=== PATIENT | female | born 1950 | race Caucasian/White ===

== ENCOUNTER → 2016-08-24 | Outpatient (CLI) | payer BC ==
--- NOTE | 2016-08-25 09:39 | MM ---
Reason for exam: screening (asymptomatic). Last mammogram was performed 1 year ago. History: Patient is postmenopausal. Family history of premenopausal breast cancer in mother at age 38. Physical Findings: A clinical breast exam by your physician is recommended on an annual basis and results should be correlated with mammographic findings. MG Screening Mammo w CAD Bilateral CC and MLO view(s) were taken. Prior study comparison: August 22, 2015, bilateral MG screening mammo w CAD. August 02, 2014, bilateral MG screening mammo w CAD. The breast tissue is heterogeneously dense. This may lower the sensitivity of mammography. Benign calcifications. Focal asymmetry upper central left breast. ASSESSMENT: Incomplete: need additional imaging evaluation, BI-RAD 0 RECOMMENDATION: Special view mammogram of the left breast. If lesion persists on supplemental views, image directed ultrasound is recommended. [facility] will attempt to contact patient to return for supplemental views and ultrasound if indicated.
== END | disposition home or self-care (01) ==
LOC: RADMAMWWP 08:54
PROVIDERS: ATTEND Family Medicine
DX: Z12.31 Encounter for screening mammogram for malignant neoplasm of breast (principal); R92.2 Inconclusive mammogram

== ENCOUNTER → 2016-09-01 | Outpatient (CLI) | payer BC ==
--- NOTE | 2016-09-01 14:34 | MM ---
Reason for exam: additional evaluation requested from abnormal screening. Last mammogram was performed less than 1 month ago. History: Patient is postmenopausal. Family history of premenopausal breast cancer in mother at age 38. Physical Findings: Nurse did not find any significant physical abnormalities on exam. MG Work Up Mamm w CAD LT CC and MLO view(s) were taken of the left breast. Prior study comparison: August 24, 2016, bilateral MG screening mammo w CAD. August 22, 2015, bilateral MG screening mammo w CAD. There is no discrete abnormality including area of concern. These results were verbally communicated with the patient and result sheet given to the patient on 09/01/16. ASSESSMENT: Benign, BI-RAD 2 RECOMMENDATION: Return to routine screening mammogram schedule for both breasts.
== END | disposition home or self-care (01) ==
LOC: RADMAMWWP 13:27
PROVIDERS: ATTEND Family Medicine
DX: R92.8 Other abnormal and inconclusive findings on diagnostic imaging of breast (principal)

== ENCOUNTER 2016-09-28 08:55 | Day surgery (SDC) | payer BC ==
[2016-09-27 08:41] VITALS: BMI 28.5
--- NOTE | 2016-09-27 19:33 | HP ---
DATE OF ADMISSION: 09/28/2016 CHIEF COMPLAINT: Right shoulder stiffness. HISTORY OF PRESENT ILLNESS: Patient is a 66-year-old [id number] retired female who presents with persistent right shoulder stiffness after undergoing a rotator cuff repair last year. She had adequate rehabilitation. Past medical history is significant for hypertension and type 2 diabetes. Past surgical history is significant for: 1. Cholecystectomy. 2. Hysterectomy. 3. Right shoulder rotator cuff repair. CURRENT MEDICATIONS: 1. Glipizide. 2. Adalat. 3. Januvia. 4. Lipitor. 5. Lisinopril. 6. Metformin. 7. Protonix. She notes ALLERGIES to BIAXIN. FAMILY HISTORY: Significant for cancer, heart disease. SOCIAL HISTORY: Significant for social alcohol use. Sixteen-point review of systems otherwise reviewed and is noncontributory. On examination, the patient is approximately 5 feet tall, 145 pounds of endomorphic habitus. HEENT exam is nonfocal. Neck is supple. On examination of her right shoulder, there is no warmth or erythema. Active motion, forward elevation to 100 degrees. External rotation with arm at side 45 degrees. Internal rotation to L4. Passively I am able to forward-elevate her to 100 degrees. Motor strength is 5/5 for abduction and external rotation. Her distal neurovascular exam appears to be otherwise intact in the right upper extremity. IMPRESSION: 1. Right shoulder adhesive capsulitis, status post rotator cuff repair. 2. History of diabetes. RECOMMENDATIONS: I talked to the patient at length regarding her treatment options. She continues to have significant stiffness despite adequate rehabilitation. After thorough discussion, she opts to proceed with surgery. We will plan to proceed with manipulation under anesthesia with subacromial cortisone injection. We will have her begin therapy directly after the procedure. Risks and benefits were discussed at length in layman's terms.
[~2016-09-28 08:55] MED LIST: DEXAMETHASONE SOD PHOSPHATE 10 MG/ML 1 ML VIAL IV ONE; LACTATED RINGERS 1,000 ML IV SCH; LIDOCAINE 1% 20 ML VIAL (10MG/ML) FOR IV START INTRADERMA PRN; MIDAZOLAM 2 MG/2 ML VIAL IV PRN; SCOPOLAMINE 1.5MG/72HR PATCH TRANSDERM ONE; ceFAZolin 2 GM in SODIUM CHLORIDE 0.9% 100 ML IVPB ONE
[2016-09-28 09:19] VITALS: TEMP 98.1
[2016-09-28 09:27] LABS: Glucose,Whole Blood 166 mg/dL (75-99)
[2016-09-28] MEDS: ONDANSETRON 4 MG/2 ML VIAL IVP ONE ×2 (09:28→11:07)
[2016-09-28] MEDS ORDERED: LIDOCAINE 1% INJ 10MG/ML (20 ML MDV) ONE (10:20)
[2016-09-28] MEDS ORDERED: KETOROLAC 30 MG/ML 1 ML VIAL ONE (10:20)
[2016-09-28] MEDS ORDERED: PROPOFOL 10 MG/ML 20 ML VIAL IV ONE (10:20)
[2016-09-28] MEDS ORDERED: LACTATED RINGERS 1,000 ML IV ONE (10:35)
[2016-09-28] MEDS ORDERED: methylPREDNISolone ACETATE 80 MG/ML 1 ML VIAL INTRAARTIC ONE (10:48)
[2016-09-28] MEDS ORDERED: BUPIVACAINE (PF) 0.25% 30 ML VIAL INTRAARTIC ONE (10:48)
--- NOTE | 2016-09-28 10:55 | P.OP ---
Date of Procedure: 09/28/16 Preoperative Diagnosis: Right shoulder adhesive capsulitis Postoperative Diagnosis: Same Procedure(s) Performed: Manipulation under anesthesia right shoulder with subacromial cortisone injection Anesthesia: MAC Surgeon: Carlos Morgan Estimated Blood Loss (ml): 0 Pathology: none sent Condition: stable Disposition: PACU Indications for Procedure: The patient's a 66-year-old female who underwent previous rotator cuff repair for her right shoulder who presents with persistent stiffness despite adequate rehabilitation. A discussion of the risks and benefits of manipulation under anesthesia was made with the patient. She opted to proceed. Specific risks to this procedure to include fracture, dislocation, possible tendon rerupture, possible recurrence of stiffness and need for subsequent procedures was discussed. Informed consent was obtained. Operative Findings: Significant adhesions Description of Procedure: The patient was brought to the recovery room, and after induction of IV sedation the right shoulder was then gently manipulated. First with her arm at her side obtaining full external rotation. Moderate adhesions were encountered. I then obtaining full forward elevation. Again there were moderate adhesions. The posterior shoulder was prepped with ChloraPrep. 80 mg of Depo-Medrol along with 5 mL of quarter percent plain Marcaine was injected into the posterior subacromial space. The patient was then monitored until fully awake. No complications were incurred. There was no blood loss.
[2016-09-28] MEDS: HYDROmorphone 1 MG/ML 1 ML SYRINGE IVP PRN ×2 (11:06→11:12)
[2016-09-28 11:17] VITALS: RESP 16
[2016-09-28 12:05] VITALS: BP 126/70; PULSE 83
== END 2016-09-28 12:38 | disposition home or self-care (01) ==
LOC: OR 08:55
PROVIDERS: ATTEND Orthopaedic Surgery
DX: M75.01 Adhesive capsulitis of right shoulder (principal); I10 Essential (primary) hypertension; E11.9 Type 2 diabetes mellitus without complications; Z79.84 Long term (current) use of oral hypoglycemic drugs; K21.9 Gastro-esophageal reflux disease without esophagitis; Z79.899 Other long term (current) drug therapy; Z88.1 Allergy status to other antibiotic agents
CPT/HCPCS: 23700; 20610; J1040; J1100; J2405; J2001; J1885; J1170; J2704

== ENCOUNTER → 2017-12-05 | Outpatient (CLI) | payer BC, MEDICARE ==
--- NOTE | 2017-12-05 15:24 | XR ---
EXAMINATION TYPE: XR hand complete bilateral DATE OF EXAM: 12/05/2017 COMPARISON: NONE HISTORY: Bilateral hand pain TECHNIQUE: Three views are submitted. FINDINGS: Right ankle The osseous structures are intact. There is diffuse osteopenia. Narrowing of the MCP and DIP joint joints of all digits noted. No erosive changes. Narrowing the first carpal metacarpal joint . Left hand: There is near complete lack of presence of the trapezium. Results in arthropathy and depre ssion of the upper margin of the scaphoid. This may be congenital. Narrowing of all of the DIP and fi rst MCP joint noted. IMPRESSION: 1. Mild arthropathy bilaterally with no erosive changes. There is diffuse osteopenia. 2. 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 3. No acute fractures.
--- NOTE | 2017-12-05 15:55 | BD ---
EXAMINATION TYPE: MG DEXA axial skeleton. DATE OF EXAM: 12/05/2017 COMPARISON: 09.12.2015 DEXA bone scan. CLINICAL HISTORY: 67 YR OLD FEMALE.....ICD-10 CODE: M81.0 AGE RELATED OSTEOPOROSIS Height: 57.7 Weight: 141 FRAX RISK QUESTIONS: Alcohol (3 or more units per day): NO Family History (Parent hip fracture): UNKNOWN Glucocorticoids (More than 3mos): NO (Ex: prednisone, prednisolone, methylprednisolone, dexamethasone, and hydrocortisone). History of Fracture in Adulthood: YES Secondary Osteoporosis: NO 1. Type 1 Diabetes: NO 2. Hyperthyroidism: NO 3. Menopause before 45: NO 4. Malnutrition: NO 5. Chronic liver disease: NO Rheumatoid Arthritis: NO Current Tobacco Use: NO RISK FACTORS HISTORY OF: LT FOOT X2....STRESS FX Family History of Osteoporosis: UNKNOWN Active: YES Diet low in dairy products/other sources of calcium: NO Postmenopausal woman: YES AT AGE 53 Lost more than 2 inches in height since high school: YES Hyperparathyroidism: NO Adrenal Insufficiency: NO MEDICATIONS: Additional Medications: BP MEDS, ORAL DIABETIC MEDS, VIT D, REFLUX MEDS, STATINS FOR CHOLESTEROL Additional History: DIABETIC, HYPERTENSION EXAM MEASUREMENTS: Bone mineral densitometry was performed using the [employer] System. Bone mineral density as measured about the Lumbar spine is: ----- L1-L4(G/cm2): 0.887 T Score Values are as follows: ----- L1: -2.8 ----- L2: -2.3 ----- L3: -2.6 ----- L4: -2.3 ----- L1-L4: -2.4 Bone mineral density has: Increased 2.0% since study of: 09.12.2015 Bone mineral density about the R hip (g/cm2): 0.810 Bone mineral density about the L hip (g/cm2): 0.752 T Score values are as follows: -----R Neck: -2.4 -----L Neck: -3.0 -----R Total: -1.6 -----L Total: -2.0 Bone mineral density has: Increased 0.6% since study of: 09.12.2015 FRAX%s: THERE IS A 25.7% CHANCE FOR A MAJOR OSTEOPOROTIC FX AND A 7.5% FOR A HIP FX.....PROBABIL ITY OF FX IN 10 YRS TIME IMPRESSION: Osteoporosis (T Score less than -2.5) remains now present femoral neck level left hip. There remains increased fracture risk and therapy is usually indicated based on age. Re-Screen 1-2 years. NOTE: T-SCORE=SD OF THE YOUNG ADULT MEAN.
--- NOTE | 2017-12-07 09:35 | MM ---
Reason for exam: screening (asymptomatic). Last mammogram was performed 1 year and 3 months ago. History: Patient is postmenopausal. Family history of premenopausal breast cancer in mother at age 38. Physical Findings: A clinical breast exam by your physician is recommended on an annual basis and results should be correlated with mammographic findings. MG 3D Screening Mammo W/Cad Bilateral CC and MLO view(s) were taken. Prior study comparison: September 01, 2016, left breast MG work up mamm w CAD LT. August 24, 2016, bilateral MG screening mammo w CAD. There are scattered fibroglandular densities. No significant changes when compared with prior studies. ASSESSMENT: Negative, BI-RAD 1 RECOMMENDATION: Routine screening mammogram of both breasts in 1 year.
== END | disposition home or self-care (01) ==
LOC: RADMAMWWP 13:47
PROVIDERS: ATTEND Family Medicine
DX: Z12.31 Encounter for screening mammogram for malignant neoplasm of breast (principal); M81.0 Age-related osteoporosis without current pathological fracture; M19.042 Primary osteoarthritis, left hand; M19.041 Primary osteoarthritis, right hand; M85.842 Other specified disorders of bone density and structure, left hand; M85.841 Other specified disorders of bone density and structure, right hand
CPT/HCPCS: 77063; 77067; 77080

== ENCOUNTER 2019-06-08 06:41 | Day surgery (SDC) | payer MEDICARE ==
[2019-06-01 13:16] VITALS: BMI 31.3
[~2019-06-08 06:41] MED LIST changes: -DEXAMETHASONE SOD PHOSPHATE 10 MG/ML 1 ML VIAL IV ONE; -LIDOCAINE 1% 20 ML VIAL (10MG/ML) FOR IV START INTRADERMA PRN; -MIDAZOLAM 2 MG/2 ML VIAL IV PRN; -SCOPOLAMINE 1.5MG/72HR PATCH TRANSDERM ONE; -ceFAZolin 2 GM in SODIUM CHLORIDE 0.9% 100 ML IVPB ONE
[2019-06-08 07:15] VITALS: TEMP 98.2
[2019-06-08] MEDS ORDERED: LACTATED RINGERS 1,000 ML IV ONE ×2 (07:20)
[2019-06-08 07:26] LABS: Glucose,Whole Blood 172 mg/dL (75-99)
[2019-06-08] MEDS ORDERED: PROPOFOL 10 MG/ML 20 ML VIAL IV ONE (07:35)
[2019-06-08] MEDS ORDERED: LIDOCAINE 1% INJ 10MG/ML (20 ML MDV) ONE (07:35)
--- NOTE | 2019-06-08 07:48 | P.GSHP ---
History of Present Illness H&P Date: 06/08/19 Chief Complaint: GERD, screening Patient here today for upper and lower endoscopy. Patient has history of chronic reflux. Last upper endoscopy 10 years ago. Last colonoscopy 10 years ago which was normal. No bowel related complaints. Her for screening colonoscopy as well. Past Medical History Past Medical History: Diabetes Mellitus, GERD/Reflux, Hyperlipidemia, Hypertension, Rheumatoid Arthritis (RA) History of Any Multi-Drug Resistant Organisms: None Reported Past Surgical History: Cholecystectomy, Hysterectomy, Orthopedic Surgery Additional Past Surgical History / Comment(s): D & C. ORTHO: LEFT THUMB JOINT REPLACED, LEFT FOOT SPUR.RIGHT SHOULDER ROTATOR CUFF Past Anesthesia/Blood Transfusion Reactions: No Reported Reaction, Motion Sickness Smoking Status: Never smoker - Past Family History Mother Family Medical History: Cancer Additional Family Medical History / Comment(s): BREAST WITH METS Father Family Medical History: Coronary Artery Disease (CAD) Additional Family Medical History / Comment(s): CABG Brother(s) Family Medical History: Cancer Additional Family Medical History / Comment(s): LUNG CANCER Medications and Allergies Home Medications Medication Instructions Recorded Confirmed Type Atorvastatin [Lipitor] 40 mg PO QAM 03/30/16 06/01/19 History Cholecalciferol [Vitamin D3] 2,000 units PO DAILY 03/30/16 06/01/19 History Lisinopril 20 mg PO QAM 03/30/16 06/01/19 History Pantoprazole [Protonix] 40 mg PO HS 03/30/16 06/01/19 History glipiZIDE [Glipizide] 10 mg PO QAM 03/30/16 06/01/19 History metFORMIN HCL ER [Glucophage Xr] 2,000 mg PO HS 03/30/16 06/01/19 History sitaGLIPtin [Januvia] 100 mg PO QAM 03/30/16 06/01/19 History amLODIPine [Norvasc] 10 mg PO DAILY 09/27/16 06/01/19 History Diclofenac Sodium [Voltaren] 50 mg PO BID 06/01/19 06/01/19 History Hydroxychloroquine Sulfate 400 mg PO DAILY 06/01/19 06/01/19 History [Plaquenil] Pioglitazone HCl 45 mg PO DAILY 06/01/19 06/01/19 History Allergies Allergy/AdvReac Type Severity Reaction Status Date / Time clarithromycin [From Biaxin] Allergy Nausea & Verified 06/01/19 13:01 Vomiting Surgical - Exam Vital Signs Temp Pulse Resp BP Pulse Ox 98.2 F 102 H 18 149/70 96 06/08/19 07:12 06/08/19 07:12 06/08/19 07:12 06/08/19 07:12 06/08/19 07:12 Physical exam: General: Well-developed, well-nourished HEENT: Normocephalic, sclerae nonicteric Abdomen: Nontender, nondistended Extremities: No edema Neuro: Alert and oriented Results - Labs Abnormal Lab Results - Last 24 Hours (Table) 06/08/19 Range/Units 07:19 POC Glucose (mg/dL) 172 H (75-99) mg/dL Assessment and Plan (1) Colon cancer screening Narrative/Plan: Will proceed with upper and lower endoscopy at this time. Current Visit: Yes Status: Acute Code(s): Z12.11 - ENCOUNTER FOR SCREENING FOR MALIGNANT NEOPLASM OF COLON SNOMED Code(s): 754158131
--- NOTE | 2019-06-08 08:05 | P.PCN ---
Date of Procedure: 06/08/19 Procedure(s) Performed: PREOPERATIVE DIAGNOSIS: Colon cancer screening, GERD POSTOPERATIVE DIAGNOSIS: Gastritis, gastric polyps, hiatal hernia, distal esophagitis, normal colon PROCEDURE: 1. EGD with biopsy 2. Colonoscopy ANESTHESIA: MAC SURGEON: Geovanni Dinero M.D. SPECIMENS: Antrum, gastric polyp, distal esophagus ENDOSCOPIC PROCEDURE: The patient was on the endoscopy table in the left decubitus position. The Olympus gastroscope was inserted into the oropharynx and passed under direct visualization to the region of the third portion of the duodenum. From that point the scope was slowly withdrawn inspecting all surfaces carefully. There were no neoplastic inflammatory or polypoid lesions throughout the duodenum. The pylorus was widely patent. The stomach was carefully inspected. There was mild gastritis present. Multiple small polyps are seen. A biopsy of one of the polyps took place. A biopsy of the antrum took place to rule out H. pylori. Retroflexion revealed a small to moderate sized hiatal hernia. The GE junction was present 3 cm above the diaphragmatic hiatus. At the distal esophagus there were multiple linear erosions measuring 2-3 cm in length these were non-circumferential. Biopsies of the distal esophagitis took place. The remainder the esophagus was examined appeared normal. The patient was kept on the endoscopy table in the left decubitus position. The Olympus colonoscope was inserted into the anus and passed under direct visualization to the base of the cecum. The appendiceal orifice was visualized. From that point the scope was slowly withdrawn inspecting all surfaces carefully. There were no neoplastic inflammatory or polypoid lesions throughout the cecum, ascending, transverse, descending, sigmoid and rectum. There was no diverticulosis noted. Digital rectal examination was normal. The patient was taken to the recovery room in stable condition per anesthesia guidelines. RECOMMENDATIONS: Increase antiacid therapy. Follow-up colonoscopy 10 years. Await biopsy results.
[2019-06-08 08:29] VITALS: RESP 18
[2019-06-08 09:23] VITALS: BP 140/79; PULSE 66
== END 2019-06-08 09:00 | disposition home or self-care (01) ==
LOC: ORWHC2ENDO 06:41
PROVIDERS: ATTEND Surgery
DX: Z12.11 Encounter for screening for malignant neoplasm of colon (principal); K29.50 Unspecified chronic gastritis without bleeding; K31.7 Polyp of stomach and duodenum; K21.0 Gastro-esophageal reflux disease with esophagitis; K22.10 Ulcer of esophagus without bleeding; K44.9 Diaphragmatic hernia without obstruction or gangrene; M06.9 Rheumatoid arthritis, unspecified; E11.9 Type 2 diabetes mellitus without complications; I10 Essential (primary) hypertension; E78.5 Hyperlipidemia, unspecified; Z79.84 Long term (current) use of oral hypoglycemic drugs; Z79.899 Other long term (current) drug therapy; Z88.1 Allergy status to other antibiotic agents; Z90.49 Acquired absence of other specified parts of digestive tract; Z90.710 Acquired absence of both cervix and uterus; Z98.890 Other specified postprocedural states; Z80.3 Family history of malignant neoplasm of breast; Z82.49 Family history of ischemic heart disease and other diseases of the circulatory system; Z80.1 Family history of malignant neoplasm of trachea, bronchus and lung
CPT/HCPCS: 88305; 43239; J2001; J2704; G0121

== ENCOUNTER → 2019-10-11 | Outpatient (CLI) | payer MEDICARE ==
--- NOTE | 2019-10-12 01:02 | CONS ---
CONSULTATION DATE OF SERVICE: 10/11/2019 69-year-old lady who has been evaluated in Sleep Center for possible obstructive sleep apnea-hypopnea syndrome. HISTORY OF PRESENT ILLNESS/SLEEP WAKE EVALUATION: SLEEP SCHEDULE: Patient's usual sleep schedule on weekdays from 10 p.m. to 5:40 am and on the weekends from 10 p.m. until 7:30 a.m. FALLING ASLEEP: Sometimes she has problems with falling asleep. Has TV set in bedroom. DURING SLEEP: Usually sleeps on the side position. She sleeps by herself, but sometimes when she is traveling, people told about loud snoring. She wakes up from sleep once with nocturia. No history of hypnagogic hallucinations, sleep paralysis or cataplexy. DURING THE DAY, SLEEP WAKE EVALUATION: During the day, she may have episodes of irritability. Nora Sleepiness Scale is 6. She may take one nap around 3 pm. Usually does not feel refreshed after naps. Does not see dreams during naps. PAST MEDICAL HISTORY: Positive for hypertension, diabetes mellitus, acid reflux, hyperlipidemia. PAST SURGICAL HISTORY: Total hysterectomy, cholecystectomy, right shoulder surgery. MEDICATIONS: Glipizide, pioglitazone, atorvastatin, lisinopril, amlodipine, pantoprazole, Januvia, Xanax, hydrochlorothiazide metformin, Pepcid, vitamin D3. SOCIAL HISTORY: Negative for smoking. Alcohol consumption very rarely. FAMILY HISTORY: Hypertension, angina, heart problems, stroke, asthma, arthritis, sinus problems, cancer, headaches, sleep apnea, lung problems, acid reflux, diabetes. REVIEW OF SYSTEMS: Awakenings from sleep. Sometimes tiredness and sleepiness during the day, loud snoring. PHYSICAL EXAM: lady without distress. BP 121/59, HR 83, RR 12, height 4 feet 10.5 Inches, weight 161.2 pounds, body mass index 33.0, temperature 98.2, oxygen saturation: 99%. Oropharynx extremely low position of soft palate. Neck 16-1/4 inches in circumference. Abdomen slightly obese. NECK: Supple, no JVD. Thyroid is not palpable. LUNGS: Clear to percussion and to auscultation. Good air exchange. No wheezing or rhonchi. HEART: S1, S2 regular. No murmurs, gallops, or rubs. ABDOMEN: Slightly obese. Soft and nontender. Bowel sounds are present. No organomegaly appreciated. EXTREMITIES: No clubbing or cyanosis. [employer] SUPER[employer]OR: Awake, alert, and oriented X3. Cranial nerves 2 to 7 intact. There is no fasciculation or atrophy. noted. No focal deficits observed. IMPRESSION: 1. Loud snoring, awakenings from sleep with nocturia, extremely low position of soft palate, Mallampati 4. Wide neck 16-1/4 inches. Obstructive sleep apnea-hypopnea syndrome. 2. Obesity BMI 33. 3. Hypertension. 4. Diabetes mellitus. 5. Acid reflux. 6. Hyperlipidemia. 7. Status post total hysterectomy. 8. Status post cholecystectomy. 9. Status post right shoulder surgery. PLAN: 1. Polysomnography for evaluation of patient's breathing during sleep. 2. CPAP/BiPAP titration if sleep study confirms obstructive sleep apnea-hypopnea syndrome. 3. Preferable position during sleep on the side. 4. No driving if patient feels any sleepiness. 5. I will see patient for follow up visit to explain results of testing and following plan. Thank you very much for referring this patient for consultation. Sincerely, Janak Narvaez MD, PhD, FAASM Diplomat of [place] [employer] [place] [employer] [facility] [place] MMODL / IJN: [id number] /
== END | disposition home or self-care (01) ==
LOC: SLEEP 14:38
PROVIDERS: ATTEND Internal Medicine
DX: G47.33 Obstructive sleep apnea (adult) (pediatric) (principal); R35.1 Nocturia; E66.9 Obesity, unspecified; I10 Essential (primary) hypertension; E11.9 Type 2 diabetes mellitus without complications; K21.9 Gastro-esophageal reflux disease without esophagitis; E78.5 Hyperlipidemia, unspecified; Z68.33 Body mass index [BMI] 33.0-33.9, adult; Z98.890 Other specified postprocedural states; Z90.710 Acquired absence of both cervix and uterus; Z90.49 Acquired absence of other specified parts of digestive tract; Z79.84 Long term (current) use of oral hypoglycemic drugs; Z79.899 Other long term (current) drug therapy
CPT/HCPCS: 99211

== ENCOUNTER → 2020-06-05 | Outpatient (CLI) | payer MEDICARE ==
--- NOTE | 2020-06-05 18:29 | SFUN ---
SLEEP CENTER FOLLOW UP NOTE DATE OF SERVICE: 06/05/2020 This patient is a 69-year-old lady who has been followed in Sleep Center for treatment of obstructive sleep apnea-hypopnea syndrome. Recently the patient had a polysomnogram which showed obstructive sleep apnea-hypopnea syndrome, and I discussed results of her sleep study with the patient in detail. Today is her first visit on treatment with CPAP. She is able to use the equipment every night. No complaints about pressure or mask fitting. She sleeps better with the machine. Raymond Sleepiness Scale today is 6. I checked her CPAP unit. Range of the pressure is from 5 to 12, average pressure 11.4. Usage is 100% of the time, 7 hours per night. Leak is 25 L/minute. Apnea-hypopnea index is only 0.9, which is perfect. MEDICATIONS: Glipizide, atorvastatin, lisinopril, amlodipine, pantoprazole, Januvia, hydroxychloroquine, metformin ER, Pepcid, vitamin D3, pioglitazone. PHYSICAL EXAMINATION: GENERAL: A pleasant patient in no distress. VITAL SIGNS: BP 111/70, HR 94, RR 15, weight 165, temperature 98.3, oxygen saturation at room air 99%. HEENT: PERRLA, EOMI. Evaluation of oropharynx showed tongue protrudes midline. Extremely low position of soft palate. Mallampati IV. NECK: Supple. No JVD. Thyroid is not palpable. LUNGS: Clear to percussion and to auscultation. Good air exchange. No wheezing or rhonchi. HEART: S1, S2 regular. No murmurs, gallops or rubs. ABDOMEN: Slightly obese. EXTREMITIES: No clubbing or cyanosis. WET SILK HANGER: Awake, alert, and oriented X3. Cranial nerves 2 to 7 intact. There is no fasciculation or atrophy. noted. No focal deficits observed. IMPRESSION: 1. Obstructive sleep apnea-hypopnea syndrome. The patient demonstrated 100% compliance with treatment, benefitting from treatment. 2. Obesity. 3. Hypertension. 4. Diabetes mellitus. 5. Acid reflux. 6. Hyperlipidemia. 7. Status post total hysterectomy. 8. Status post cholecystectomy. 9. Status post right shoulder surgery. PLAN: 1. Patient will continue to use PAP equipment every night for the whole night. 2. Sleep hygiene with regular time in bed for at least 7-1/2 to 8 hours. 3. Precautions related to driving. No driving if feeling sleepiness. 4. I will maintain all necessary prescription for PAP supplies including mask, tube, filters. 5. Watching weight. 6. No driving if feeling sleepiness. 7. Follow-up visit in 6 months or earlier if patient has any problems. Thank you very much for allowing me to participate in the management of your patient. Sincerely, Janak Narvaez MD, PhD, FAASM Diplomat of [place] [employer] [employer] [facility] [place] MMODL / IJN: [id number] /
== END | disposition home or self-care (01) ==
LOC: SLEEP 10:30
PROVIDERS: ATTEND Internal Medicine
DX: G47.33 Obstructive sleep apnea (adult) (pediatric) (principal); I10 Essential (primary) hypertension; E11.9 Type 2 diabetes mellitus without complications; K21.9 Gastro-esophageal reflux disease without esophagitis; Z90.710 Acquired absence of both cervix and uterus; Z90.49 Acquired absence of other specified parts of digestive tract; Z98.890 Other specified postprocedural states; Z99.89 Dependence on other enabling machines and devices; Z79.84 Long term (current) use of oral hypoglycemic drugs; Z79.899 Other long term (current) drug therapy

== ENCOUNTER 2020-12-10 17:22 | Emergency (ER) | payer MEDICARE ==
[2020-12-10 17:58] VITALS: BP 160/84; PULSE 90; RESP 18; TEMP 98.1
--- NOTE | 2020-12-10 18:47 | XR ---
EXAMINATION TYPE: XR humerus RT DATE OF EXAM: 12/10/2020 COMPARISON: NONE HISTORY: Pain TECHNIQUE: 2 views FINDINGS: I see no fracture nor dislocation. Shoulder joint appears intact. There are no pathologic c alcifications. IMPRESSION: Negative right humerus exam. No fracture seen.
--- NOTE | 2020-12-10 18:54 | XR ---
EXAMINATION TYPE: XR shoulder complete RT DATE OF EXAM: 12/10/2020 COMPARISON: NONE HISTORY: Pain TECHNIQUE: 3 views FINDINGS: I see no fracture nor dislocation. Joint spaces are normal. There are no pathologic calcifi cations. IMPRESSION: Negative right humerus exam. No fracture seen.
[2020-12-10] MEDS ORDERED: ACETAMINOPHEN TAB 500 MG TAB PO STA (19:01)
--- NOTE | 2020-12-10 19:16 | ED ---
General Adult HPI - General Chief complaint: Fall Stated complaint: fall/shoulder injury Time Seen by Provider: 12/10/20 18:00 Source: patient, RN notes reviewed, old records reviewed Mode of arrival: ambulatory Limitations: no limitations - History of Present Illness Initial comments: This is a 70-year-old female presents emergency Department who slipped and fell and landed on her left knee and right shoulder. Patient states she has no knee pain. Patient complains of some anterior shoulder tenderness and states it hurts to lift her shoulder. Patient states she's had a frozen shoulder in the past as well as rotator cuff on that shoulder. Patient denies any Pain. Patient denies any rib pain. Patient denies any difficulty breathing first [facility] per patient denies hitting her head. Patient denies any neck pain. Patient denies any numbness or weakness. - Related Data Home Medications Medication Instructions Recorded Confirmed Atorvastatin [Lipitor] 40 mg PO QAM 03/30/16 06/01/19 Cholecalciferol [Vitamin D3] 2,000 units PO DAILY 03/30/16 06/01/19 Pantoprazole [Protonix] 40 mg PO HS 03/30/16 06/01/19 glipiZIDE [Glipizide] 10 mg PO QAM 03/30/16 06/01/19 lisinopriL [Lisinopril] 20 mg PO QAM 03/30/16 06/01/19 metFORMIN HCL ER [Glucophage Xr] 2,000 mg PO HS 03/30/16 06/01/19 sitaGLIPtin [Januvia] 100 mg PO QAM 03/30/16 06/01/19 amLODIPine [Norvasc] 10 mg PO DAILY 09/27/16 06/01/19 Diclofenac Sodium [Voltaren] 50 mg PO BID 06/01/19 06/01/19 Hydroxychloroquine Sulfate 400 mg PO DAILY 06/01/19 06/01/19 [Plaquenil] Pioglitazone HCl 45 mg PO DAILY 06/01/19 06/01/19 Allergies Allergy/AdvReac Type Severity Reaction Status Date / Time clarithromycin [From Biaxin] Allergy Nausea & Verified 12/10/20 17:58 Vomiting Review of Systems ROS Statement: Those systems with pertinent positive or pertinent negative responses have been documented in the HPI. ROS Other: All systems not noted in ROS Statement are negative. Past Medical History Past Medical History: Diabetes Mellitus, GERD/Reflux, Hyperlipidemia, Hypertension, Rheumatoid Arthritis (RA) History of Any Multi-Drug Resistant Organisms: None Reported Past Surgical History: Cholecystectomy, Hysterectomy, Orthopedic Surgery Additional Past Surgical History / Comment(s): D & C. ORTHO: LEFT THUMB JOINT REPLACED, LEFT FOOT SPUR.RIGHT SHOULDER ROTATOR CUFF Past Anesthesia/Blood Transfusion Reactions: No Reported Reaction, Motion Sickness Past Psychological History: No Psychological Hx Reported Smoking Status: Never smoker Past Alcohol Use History: Rare Past Drug Use History: None Reported - Past Family History Mother Family Medical History: Cancer Additional Family Medical History / Comment(s): BREAST WITH METS Father Family Medical History: Coronary Artery Disease (CAD) Additional Family Medical History / Comment(s): CABG Brother(s) Family Medical History: Cancer Additional Family Medical History / Comment(s): LUNG CANCER General Exam - General Exam Comments Initial Comments: GENERAL: Patient is well-developed and well-nourished. Patient is nontoxic and well- hydrated and is in mild distress. ENT: Neck is soft and supple. No significant lymphadenopathy is noted. Oropharynx is clear. Moist mucous membranes. Neck has full range of motion without eliciting any pain. EYES: The sclera were anicteric and conjunctiva were pink and moist. Extraocular movements were intact and pupils were equal round and reactive to light. Eyelids were unremarkable. CARDIOVASCULAR: There is no chest wall tenderness SKIN: Skin is clear with no lesions or rashes and otherwise unremarkable. NEUROLOGIC: Patient is alert and oriented x3. Cranial nerves II through XII are grossly intact. Motor and sensory are also intact. Normal speech, volume and content. Symmetrical smile. MUSCULOSKELETAL: Anterior shoulder is tender to palpation lateral clavicle is also tender LYMPHATICS: No significant lymphadenopathy is noted PSYCHIATRIC: Normal psychiatric evaluation. Limitations: no limitations Course Vital Signs 12/10/20 17:53 Temperature 98.1 F Pulse Rate 90 Respiratory 18 Rate Blood Pressure 160/84 O2 Sat by Pulse 98 Oximetry Disposition Clinical Impression: Fall, Shoulder strain Disposition: HOME SELF-CARE Instructions (If sedation given, give patient instructions): Fall Prevention (ED), Rotator Cuff Injury (ED) Additional Instructions: Patient should take Tylenol when necessary for pain Is patient prescribed a controlled substance at d/c from ED?: No Referrals: Madison Dinero MD [Primary Care Provider] - 1-2 days Time of Disposition: 19:16
[2020-12-10] MEDS ORDERED: ACET/COD 300 MG/30 MG STARTER PACK 6 TAB BTL PO STA (19:17)
== END 2020-12-10 19:27 | disposition home or self-care (01) ==
LOC: EC 17:22
DX: S46.911A Strain of unspecified muscle, fascia and tendon at shoulder and upper arm level, right arm, initial encounter (principal); E11.9 Type 2 diabetes mellitus without complications; E78.5 Hyperlipidemia, unspecified; I10 Essential (primary) hypertension; K21.9 Gastro-esophageal reflux disease without esophagitis; M06.9 Rheumatoid arthritis, unspecified; W01.0XXA Fall on same level from slipping, tripping and stumbling without subsequent striking against object, initial encounter; Z90.49 Acquired absence of other specified parts of digestive tract; Z90.710 Acquired absence of both cervix and uterus; Z79.84 Long term (current) use of oral hypoglycemic drugs
CPT/HCPCS: 99283

== ENCOUNTER → 2021-01-16 | Outpatient (CLI) | payer MEDICARE ==
[2021-01-16 09:44] LABS: Basophils # (A) 0.1 k/uL (0-0.2); Basophils % (A) 1 %; Eosinophils # (A) 0.2 k/uL (0-0.7); Eosinophils % (A) 3 %; HCT 37.7 % (34.0-46.0); HGB 12.2 gm/dL (11.4-16.0); Lymphocytes % (A) 28 %; MCH 27.9 pg (25.0-35.0); MCHC 32.5 g/dL (31.0-37.0); MCV 85.8 fL (80.0-100.0); Mean Platelet Volume 7.8; Monocytes # (A) 0.4 k/uL (0-1.0); Monocytes % (A) 6 %; Neutrophils # (A) 4.5 k/uL (1.3-7.7); Neutrophils % (A) 61 %; Platelet Count 277 k/uL (150-450); RBC 4.39 m/uL (3.80-5.40); RDW 13.7 % (11.5-15.5); WBC 7.3 k/uL (3.8-10.6)
[2021-01-16 10:07] LABS: ALT 26 U/L (4-34); AST 25 U/L (14-36); African American GFR (CKD) >90 (>60 ml/min/1.73 sqM); Albumin 4.5 g/dL (3.5-5.0); Albumin/Globulin Ratio 1.6; Alkaline Phosphatase 109 U/L (38-126); Anion Gap 11 mmol/L; Blood Urea Nitrogen 16 mg/dL (7-17); Calcium 10.4 mg/dL (8.4-10.2); Carbon Dioxide 27 mmol/L (22-30); Chloride 98 mmol/L (98-107); Globulin 2.8 g/dL; Glucose 284 mg/dL (74-99); Non-African American GFR(CKD) >90 (>60 ml/min/1.73 sqM); Potassium 4.4 mmol/L (3.5-5.1); Sodium 136 mmol/L (137-145); Total Bilirubin 0.4 mg/dL (0.2-1.3); Total Protein 7.3 g/dL (6.3-8.2)
[2021-01-16 17:36] LABS: Cholesterol 206 mg/dL (0-200)
[2021-01-16 17:48] LABS: Hemoglobin A1C 12.1 % (4.0-6.0)
--- NOTE | 2021-01-20 08:43 | MM ---
Reason for exam: screening (asymptomatic). Last mammogram was performed 3 years and 1 month ago. History: Patient is postmenopausal. Family history of premenopausal breast cancer in mother at age 38. Physical Findings: A clinical breast exam by your physician is recommended on an annual basis and results should be correlated with mammographic findings. MG 3D Screening Mammo W/Cad Bilateral CC and MLO view(s) were taken. Prior study comparison: December 05, 2017, bilateral MG 3d screening mammo w/cad. August 24, 2016, bilateral MG screening mammo w CAD. There are scattered fibroglandular densities. There is chronic nodularity bilaterally. Lateral right CC subareolar asymmetry density incompletely disperses on 3D but has no clear MLO correlate. Benign secretory calcifications medially on the left. ASSESSMENT: Incomplete: need additional imaging evaluation, BI-RAD 0 RECOMMENDATION: Special view mammogram of the right breast. (3D) If lesion persists on supplemental views, image directed ultrasound is recommended. [facility] will attempt to contact patient to return for supplemental views and ultrasound if indicated.
== END | disposition home or self-care (01) ==
LOC: RADMAMWWP 08:49
PROVIDERS: ATTEND Family Medicine
DX: Z12.31 Encounter for screening mammogram for malignant neoplasm of breast (principal); Z78.0 Asymptomatic menopausal state; Z80.3 Family history of malignant neoplasm of breast
CPT/HCPCS: 77063; 77067; 80053; 80061; 83036; 85025

== ENCOUNTER → 2021-01-29 | Outpatient (CLI) | payer MEDICARE ==
--- NOTE | 2021-01-30 11:17 | MM ---
Reason for exam: additional evaluation requested from abnormal screening. Last mammogram was performed less than 1 month ago. History: Patient is postmenopausal. Family history of premenopausal breast cancer in mother at age 38. Physical Findings: Nurse did not find any significant physical abnormalities on exam. MG 3D Work Up W/Cad RT Spot compression CC, spot compression MLO, and ML view(s) were taken of the right breast. Prior study comparison: January 16, 2021, bilateral MG 3d screening mammo w/cad. December 05, 2017, bilateral MG 3d screening mammo w/cad. There are scattered fibroglandular densities. Group of right retroareolar nodules most likely benign asymmetry, not significantly changed on spot compression. Right ultrasound recommended. These results were verbally communicated with the patient and result sheet given to the patient on 01/29/21. ASSESSMENT: Incomplete: need additional imaging evaluation, BI-RAD 0 RECOMMENDATION: Ultrasound of the right breast. (retroareolar)
--- NOTE | 2021-01-30 11:21 | USB ---
Reason for exam: additional evaluation requested from abnormal screening. History: Patient is postmenopausal. Family history of premenopausal breast cancer in mother at age 38. US Breast Workup Limited RT Right limited breast ultrasound including focal area of concern, retroareolar and axilla demonstrates benign appearing duct ectasia at the posterior nipple. These results were verbally communicated with the patient and result sheet given to the patient on 01/29/21. ASSESSMENT: Benign, BI-RAD 2 RECOMMENDATION: Return to routine screening mammogram schedule for both breasts.
== END | disposition home or self-care (01) ==
LOC: RADMAMWWP 10:10
PROVIDERS: ATTEND Family Medicine
DX: R92.8 Other abnormal and inconclusive findings on diagnostic imaging of breast (principal); Z80.3 Family history of malignant neoplasm of breast
CPT/HCPCS: 77065; 76642; G0279; 77061

== ENCOUNTER → 2023-04-13 | Outpatient (CLI) | payer MEDICARE ==
--- NOTE | 2023-04-13 16:44 | BD ---
EXAMINATION TYPE: Axial Bone Density DATE OF EXAM: 04/13/2023 CLINICAL HISTORY: 72 years old Female. ICD-10 CODE: M85.88 OT DISRD OF BONE DENSITY Height: 57.5 Weight: 146 FRAX RISK QUESTIONS: History of Fracture in Adulthood: yes, foot stress Secondary Osteoporosis: noRheumatoid Arthritis: no Current Tobacco Use: no RISK FACTORS HISTORY OF: Family History of Osteoporosis: no Active: yes Diet low in dairy products/other sources of calcium: yes Postmenopausal woman: yes Lost more than 2 inches in height since high school: no Frequent falls: no Poor Health: no MEDICATIONS: Additional Medications: yes diabetic meds, hbp meds, vit d, reflux meds, cholesterol, arthritis meds EXAM MEASUREMENTS: Bone mineral densitometry was performed using the [employer] System. Bone mineral density as measured about the Lumbar spine is: ----- L1-L4(G/cm2): 0.840 T Score Values are as follows: ----- L1: -2.9 ----- L2: -2.6 ----- L3: -2.9 ----- L4: -3.1 ----- L1-L4: -2.8 Z Score Values are as follows: ----- L1: -1.3 ----- L2: -0.9 ----- L3: -1.2 ----- L4: -1.4 ----- L1-L4: -1.2 Bone mineral density has: Decreased -5.3 % since study of: 12/05/2017 Bone mineral density about the R hip (g/cm2): 0.774 Bone mineral density about the L hip (g/cm2): 0.716 T Score values are as follows: -----R Neck: -2.6 -----L Neck: -3.3 -----R Total: -1.9 -----L Total: -2.3 Z Score values are as follows: -----R Neck: -0.9 -----L Neck: -1.6 -----R Total: -0.4 -----L Total: -0.8 Bone mineral density has: Decreased -4.6 since study of: 12/05/2017 FRAX%s: The graph provided illustrates a 32.1% chance for a major osteoporotic fx and a 12.4% chance for the hips probability for fx in 10 years time. IMPRESSION: Osteoporosis (T Score less than -2.5). There is increased fracture risk and therapy is usually indicated based on age. Re-Screen 1-2 years. NOTE: T-SCORE=SD OF THE YOUNG ADULT MEAN.
--- NOTE | 2023-04-14 08:47 | MM ---
Reason for Exam: Screening (asymptomatic). Last mammogram was performed 2 year(s) and 3 month(s) ago. Patient History: Menarche at age 13. First Full-Term at age 30. Left ovary removed at age 53. Right ovary removed at age 53. Hysterectomy at age 53. Postmenopausal. Mother had breast cancer, age 38. Risk Values: Mónica 5 year model risk: 3.7%. NCI Lifetime model risk: 10.6%. Prior Study Comparison: 12/05/2017 Bilateral Screening Mammogram, [facility]. 01/16/2021 Bilateral Screening Mammogram, [facility]. 01/29/2021 Right Diagnostic Mammogram, [facility]. Tissue Density: The breast tissue is heterogeneously dense. This may lower the sensitivity of mammography. Findings: Analyzed By CAD. There is no suspicious group of microcalcifications or new suspicious mass in either breast. Overall Assessment: Benign, BI-RAD 2 Management: Screening Mammogram of both breasts in 1 year. . Patient should continue monthly self-breast exams. A clinical breast exam by your physician is recommended on an annual basis. This exam should not preclude additional follow-up of suspicious palpable abnormalities. Note on Mónica scores and lifetime risk: 1. A Mónica score greater than 3% is considered moderate risk. If this is the case, consider specialist referral to assess eligibility for a risk reducing agent. 2. If overall lifetime risk for the development of breast cancer is 20% or higher, the patient may qualify for future screening with alternating mammogram and breast MRI. Electronically signed and approved by: Arturo Brewer M.D. Radiologis
== END | disposition home or self-care (01) ==
LOC: RADMAMWWP 07:29
PROVIDERS: ATTEND Family Medicine
DX: Z12.31 Encounter for screening mammogram for malignant neoplasm of breast (principal); Z13.820 Encounter for screening for osteoporosis; M81.0 Age-related osteoporosis without current pathological fracture; M85.89 Other specified disorders of bone density and structure, multiple sites; Z80.3 Family history of malignant neoplasm of breast; Z78.0 Asymptomatic menopausal state
CPT/HCPCS: 77063; 77067; 77080

== ENCOUNTER → 2023-06-20 | Outpatient (CLI) | payer MEDICARE ==
[2023-06-20 15:33] LABS: Basophils % (A) 0.9 %; Eosinophils # (A) 0.18 X 10*3/uL (0.04-0.35); Eosinophils % (A) 1.7 %; HCT 40.3 % (37.2-46.3); HGB 12.5 g/dL (12.0-15.0); Lymphocytes # (A) 2.93 X 10*3/uL (0.90-5.00); Lymphocytes % (A) 27.1 %; MCH 27.7 pg (27.0-32.0); MCV 89.4 FL (80.0-97.0); Mean Platelet Volume 10.6 FL (9.5-12.2); Monocytes # (A) 0.78 X 10*3/uL (0.20-1.00); Monocytes % (A) 7.2 %; NRBC Per 100 WBC 0 X 10*3/uL (0.00-0.01); Neutrophils # (A) 6.76 X 10*3/uL (1.80-7.70); Neutrophils % (A) 62.5 %; Platelet Count 371 X 10*3/uL (140-440); RBC 4.51 X 10*6/uL (4.10-5.20); RDW 14.2 % (11.5-14.5); WBC 10.82 X 10*3/uL (4.50-10.00)
[2023-06-20 15:50] LABS: BUN/Creat Ratio 26.11 Ratio (12.00-20.00); Blood Urea Nitrogen 23.5 mg/dL (9.0-27.0); Calcium 10.7 mg/dL (8.7-10.3); Carbon Dioxide 23.6 mmol/L (21.6-31.8); Chloride 100 mmol/L (96-109); Glucose 190 mg/dL (70-110); Potassium 5.2 mmol/L (3.5-5.5); Sodium 137 mmol/L (135-145)
== END | disposition home or self-care (01) ==
LOC: LABWHC1 11:20
PROVIDERS: ATTEND Family Medicine
DX: I10 Essential (primary) hypertension (principal); E11.9 Type 2 diabetes mellitus without complications; M06.9 Rheumatoid arthritis, unspecified
CPT/HCPCS: 36415; 80048; 85025

== ENCOUNTER 2023-07-06 09:07 | Day surgery (SDC) | payer MEDICARE ==
[2023-07-01 14:58] VITALS: BMI 31.1
--- NOTE | 2023-07-05 08:46 | P.HPOR ---
History of Present Illness H&P Date: 07/05/23 Subjective: This is a 72 year old female that presents today for initial evaluation regarding a year-long history of progressively worsening right hand and base of the thumb pain as well as right ring finger locking, catching, stiffness and pain. She denies any injury or inciting event. She works at [employer]. She notes her symptoms are worse at the end of a workday. She has tried anti- inflammatories and a brace for her thumb arthritis with minimal relief. She has a history of a left thumb CMC arthroplasty performed by Dr. Ramachandran over 10 years ago and states that side is doing very well. She responded well to surgery. She has pain on the right side with any type of pinch or grasp and has difficulty working and doing normal daily tasks. She denies any numbness or tingling. Physical Examination: RUE: AIN/PIN/Radial/Ulnar/Median motor intact. Radial/Ulnar/Median SILT. 2+/4 Radial/Ulnar pulses palpated. 5/5 APB, 5/5 FDI. Negative Finkelsteins, positive CMC grind, negative Durkan's compression. TTP over RRF A1 mello with locking and catching present. Imaging: X-Rays of the right hand 2V reviewed from prior office visit demonstrate severe degenerative changes at the thumb CMC joint. Impression: 1.) Right thumb CMC arthritis, severe. 2.) Right ring finger trigger finger Plan: Diagnosis and treatment options were discussed with the patient. she has failed conservative treatment for her worsening right thumb CMC arthritis and right ring finger trigger finger and would like to pursue a right thumb basilar joint arthroplasty and right ring finger A1 mello release. Risks and benefits of surgery including bleeding, infection, damage to surrounding tissue, need for further surgery, residual numbness were discussed and the patient wished to go forward with surgery. I anticipate 8 weeks off post operatively from work. PCP clearance is requested. The patient was agreeable with this plan. CC: Tianna Brian DO Orthopedic Hand/Upper Extremity Surgeon Past Medical History Past Medical History: Diabetes Mellitus, GERD/Reflux, Hyperlipidemia, Hypertension, Rheumatoid Arthritis (RA) History of Any Multi-Drug Resistant Organisms: None Reported Past Surgical History: Cholecystectomy, Hysterectomy, Orthopedic Surgery Additional Past Surgical History / Comment(s): D & C. ORTHO: LEFT THUMB JOINT REPLACED, LEFT FOOT SPUR, RIGHT SHOULDER ROTATOR CUFF Past Anesthesia/Blood Transfusion Reactions: No Reported Reaction, Motion Sickness Past Psychological History: No Psychological Hx Reported Smoking Status: Never smoker Past Alcohol Use History: Rare Additional Drug Use History / Comment(s): . - Past Family History Mother Family Medical History: Cancer Additional Family Medical History / Comment(s): BREAST WITH METS Father Family Medical History: Coronary Artery Disease (CAD) Additional Family Medical History / Comment(s): HEART DISEASE Brother(s) Family Medical History: Cancer, Diabetes Mellitus, Myocardial Infarction ([place]) Additional Family Medical History / Comment(s): LUNG CANCER Son(s) Family Medical History: Asthma, Diabetes Mellitus, Hypertension Daughter(s) Family Medical History: Asthma Medications and Allergies Home Medications Medication Instructions Recorded Confirmed Type Atorvastatin [Lipitor] 40 mg PO DAILY 03/30/16 07/01/23 History Pantoprazole [Protonix] 40 mg PO QAM 03/30/16 07/01/23 History glipiZIDE [Glipizide] 10 mg PO QAM 03/30/16 07/01/23 History metFORMIN HCL ER [Glucophage XR] 500 mg PO QID 03/30/16 07/01/23 History amLODIPine [Norvasc] 10 mg PO DAILY 09/27/16 07/01/23 History Pioglitazone HCl 45 mg PO DAILY 06/01/19 07/01/23 History Empagliflozin [Jardiance] 25 mg PO DAILY 07/01/23 07/01/23 History Famotidine 20 mg PO HS 07/01/23 07/01/23 History Latanoprost Ophth [Xalatan 0.005%] 1 drops BOTH EYES HS 07/01/23 07/01/23 History Losartan Potassium 50 mg PO DAILY 07/01/23 07/01/23 History Allergies Allergy/AdvReac Type Severity Reaction Status Date / Time clarithromycin [From Biaxin] Allergy Nausea & Verified 07/01/23 14:30 Vomiting Physical Examination Osteopathic Statement: *. No significant issues noted on an osteopathic structural exam other than those noted in the History and Physical/Consult.
[~2023-07-06 09:07] MED LIST changes: +DEXAMETHASONE SOD PHOSPHATE 4 MG/ML 1 ML VIAL IV ONE; +HYDROmorphone 0.5 MG/0.5 ML SYRINGE IVP PRN; +LIDOCAINE 1% (10MG/ML) FOR IV START INTRADERMA PRN; +MIDAZOLAM 2 MG/2 ML VIAL IV PRN; +ONDANSETRON 4 MG/2 ML VIAL IVP ONE
[2023-07-06 09:45] LABS: Glucose,Whole Blood 161 mg/dL (70-110)
[2023-07-06] MEDS ORDERED: ONDANSETRON 4 MG/2 ML VIAL IVP ONE (10:06)
[2023-07-06] MEDS ORDERED: DEXAMETHASONE SOD PHOSPHATE 4 MG/ML 1 ML VIAL IVP ONE (10:06)
[2023-07-06] MEDS ORDERED: LIDOCAINE 1% INJ 10MG/ML (20 ML MDV) ONE (10:17)
[2023-07-06] MEDS ORDERED: MIDAZOLAM 2 MG/2 ML VIAL ONE (10:17)
[2023-07-06] MEDS ORDERED: PHENYLEPHRINE-0.9% NACL SYG 1,000 MCG/10 ML SYRINGE ONE (10:17)
[2023-07-06] MEDS ORDERED: fentaNYL (PF) 50 MCG/ML 2 ML AMP ONE (10:17)
[2023-07-06] MEDS ORDERED: HYDROmorphone (PF) 1 MG/ML ONE (10:17)
[2023-07-06] MEDS ORDERED: PROPOFOL 10 MG/ML 20 ML VIAL IV ONE (10:17)
[2023-07-06] MEDS ORDERED: BUPIVACAINE (PF) 0.5% 30 ML VIAL SQ ONE ×2 (10:24→11:16)
--- NOTE | 2023-07-06 11:23 | P.OP ---
Date of Procedure: 07/06/23 Preoperative Diagnosis: 1.) Right thumb CMC arthritis 2.) Right ring finger trigger finger Postoperative Diagnosis: 1.) Right thumb CMC arthritis 2.) Right ring finger trigger finger Procedure(s) Performed: 1.) Right thumb CMC basilar joint arthroplasty 2.) Right ring finger trigger finger A1 emllo release Implants: Arthrex 3.5mm SwivelLock Suture anchor x 2 Anesthesia: GETA Surgeon: Agustín Brian Production Welding Supervisor #1: Roman Washington Estimated Blood Loss (ml): 0 Pathology: none sent Condition: stable Disposition: PACU Description of Procedure: This is a 73 year old who presents today for a right thumb CMC basal joint arthroplasty and right ring finger A1 mello release after having failed conservative treatment for severe thumb CMC arthritis and a right ring finger trigger finger. Risks and benefits of surgery were discussed with the patient including bleeding, damage to surrounding tissue, infection, need for further surgery as well as risks of anesthesia including pulmonary embolism and even and the patient wished to proceed with surgical intervention. The patients was seen in the pre-operative area by myself. Consent and H&P were completed and updated. The correct extremity was marked in the pre-operative area by myself and all other questions were answered. The patient was brought to the operating room by the department of anesthesia. They remained on the portable stretcher and a rolling hand table was brought to the side of the operative extremity. The patient was then drifted off to sleep by the department of anesthesia. A nonsterile tourniquet was then applied to the operative extremity and the right upper extremity was then prepped and draped in normal sterile fashion. Pre-operative time out was performed indicating the correct patient, procedure and laterality. All in the room agreed. Pre-operative antibiotics were given prior to skin incision. The operative extremity was the exsanguinated with an esmarch bandage and the tourniquet was inflated to 250mmHg. Longitudinal incision was made over the left thumb CMC joint with a 15 blade scalpel. Blunt dissection was taken down to subcutaneous tissues with littler scissors taking care to preserve the branches of the superficial radial nerve. Dorsal radial artery was identified proximally in the incision and protected throughout the procedure. Scalpel was then made to incise the thumb CMC joint creating full thickness flaps off of the proximal metacarpal base and trapezium, this plane was further developed with a periosteal elevator. Elevator was then utilized to identify the thumb CMC joint and scaphotrapezial joint. McGlamory elevator was then used to excise the trapezium whole. Guidewire was then introduced down to the laser line at the base of the first metacarpal through the same incision and was over drilled. Another guidewire was then inserted at the radial base of the first metacarpal near the Insertion of APL and was then over drilled with normal drill guide. A 3.5mm Arthrex SwiveLock anchor was then inserted into the base of the first metacarpal. While holding the thumb in slight traction and full adduction, another 3.5mm Arthrex SwiveLock anchor was inserted into the base of the second metacarpal and the two strands of fibertape were centered across the first metacarpal base to create a sling around the base suspending the thumb metacarpal, good janet purchase was appreciated. The thumb was successfully suspended and full ROM was achieved passively. Suture ends were cut and skin was closed with several interrupted 4-0 Monocryl sutures followed by a running 4-0 Monocryl stitch. Attention was then drawn to the ring finger. Oblique incision was made at the base of the ring finger. Blunt dissection was taken down to the level of the A1 mello. Ragnell retractors were placed both radially and ulnarly to protect neurovascular bundles. Littler tenotomy scissors were then used to release the A1 mello from proximal to distal under direct visualization. Proximal fascial attachments were released. The tendon was then taken through range of motion and no locking or catching was appreciated. The wound was then closed with interrupted 4-0 nylon sutures in a horizontal mattress fashion. 15cc's of 0.5% Bupivicaine was injected to perform a thumb and ring finger block. Sterile dressing consisting of steri strips followed by 4x4s cast padding, and a thumb spica plaster splint was applied. Tourniquet was let down and the hand had brisk cap refill and normal perfusion immediately. The patient was then woken by the department of anesthesia and transferred to PACU in stable condition. Roman LANCASTER was present for the case and assisted in major portions of procedure and protection of vital neurovascular structures. Agustín Brian D.O. Orthopedic Hand/Upper Extremity Surgeon
[2023-07-06 11:52] VITALS: TEMP 97.1
[2023-07-06 12:16] VITALS: PULSE 75; RESP 16
[2023-07-06 12:41] VITALS: BP 123/70
[2023-07-06 12:42] LABS: Glucose,Whole Blood 136 mg/dL (70-110)
== END 2023-07-06 12:47 | disposition home or self-care (01) ==
LOC: OR 09:07
PROVIDERS: ATTEND Orthopaedic Surgery Hand Surgery
DX: M65.341 Trigger finger, right ring finger (principal); M18.11 Unilateral primary osteoarthritis of first carpometacarpal joint, right hand; M06.9 Rheumatoid arthritis, unspecified; E11.9 Type 2 diabetes mellitus without complications; K21.9 Gastro-esophageal reflux disease without esophagitis; I10 Essential (primary) hypertension; E78.5 Hyperlipidemia, unspecified; Z90.49 Acquired absence of other specified parts of digestive tract; Z90.710 Acquired absence of both cervix and uterus; Z98.890 Other specified postprocedural states; Z82.49 Family history of ischemic heart disease and other diseases of the circulatory system; Z83.3 Family history of diabetes mellitus; Z79.84 Long term (current) use of oral hypoglycemic drugs; Z79.1 Long term (current) use of non-steroidal anti-inflammatories (NSAID); Z79.899 Other long term (current) drug therapy; Z88.1 Allergy status to other antibiotic agents; Z88.8 Allergy status to other drugs, medicaments and biological substances
CPT/HCPCS: 25447; C1776; J2250; J1100; J2405; J0690; J2001; J3010; J1170; J2704; J2371; J0665

== ENCOUNTER → 2023-12-12 | Outpatient (CLI) | payer MEDICARE ==
[2023-12-12 14:43] LABS: Basophils # (A) 0.05 X 10*3/uL (0.00-0.10); Basophils % (A) 0.6 %; Eosinophils # (A) 0.31 X 10*3/uL (0.04-0.35); Eosinophils % (A) 3.5 %; HCT 44.1 % (37.2-46.3); HGB 13.4 g/dL (12.0-15.0); Lymphocytes # (A) 2.28 X 10*3/uL (0.90-5.00); Lymphocytes % (A) 26.1 %; MCH 27.1 pg (27.0-32.0); MCHC 30.4 g/dL (32.0-37.0); MCV 89.1 FL (80.0-97.0); Mean Platelet Volume 10.6 FL (9.5-12.2); Monocytes # (A) 0.63 X 10*3/uL (0.20-1.00); Monocytes % (A) 7.2 %; NRBC Per 100 WBC 0 X 10*3/uL (0.00-0.01); Neutrophils # (A) 5.44 X 10*3/uL (1.80-7.70); Neutrophils % (A) 62.1 %; Platelet Count 348 X 10*3/uL (140-440); RBC 4.95 X 10*6/uL (4.10-5.20); WBC 8.75 X 10*3/uL (4.50-10.00)
[2023-12-12 14:57] LABS: Anion Gap 15.1 mmol/L (4.00-12.00); Carbon Dioxide 21.9 mmol/L (21.6-31.8); Potassium 5.1 mmol/L (3.5-5.5)
== END | disposition home or self-care (01) ==
LOC: LABPAT 09:21
PROVIDERS: ATTEND Orthopaedic Surgery Hand Surgery
DX: Z01.812 Encounter for preprocedural laboratory examination (principal); G56.01 Carpal tunnel syndrome, right upper limb
CPT/HCPCS: 80051; 85025

== ENCOUNTER 2023-12-21 05:59 | Day surgery (SDC) | payer MEDICARE ==
[2023-12-19 09:09] VITALS: BMI 30.7
--- NOTE | 2023-12-19 11:12 | P.HPOR ---
History of Present Illness H&P Date: 12/19/23 Subjective: This is a 73 year old female that presents today for a follow up visit after undergoing right thumb CMC basilar joint arthroplasty and right ring finger A1 mello release on 07/06/23 as well as carpal tunnel syndrome symptoms. She underwent a carpal tunnel steroid injection last visit and noticed only temporary relief of her symptoms. She still has numbness in the fingertips and burning in the palm that comes and goes and is worse at night time. Physical Examination: RUE: AIN/PIN/Radial/Ulnar/Median motor intact. Radial/Ulnar/Median SILT. 2+/4 Radial/Ulnar pulses palpated. Incisions well healed. Thumb stable to axial load. Positive Durkans compression. Impression: 1.) S/P Right thumb basilar joint arthroplasty and RRF A1 mello release 2.) Right carpal tunnel syndrome Plan: Diagnosis and treatment options were discussed with the patient. She is doing well and healing as expected in regards to the thumb and ring finger but has signs of progressing carpal tunnel syndrome. She wishes to go forward with a right endoscopic vs open carpal tunnel release. Risks and benefits of surgery including bleeding, infection, damage to surrounding tissue, need for further surgery, possible need to convert to open procedure, residual numbness were discussed and the patient wished to go forward with surgery. I anticipate 2 weeks off of her [employer]'s job post operatively. The patient is agreeable with this plan. -Agustín Brian DO Orthopedic Hand/Upper Extremity Surgeon Past Medical History Past Medical History: Diabetes Mellitus, GERD/Reflux, Hyperlipidemia, Hypertension, Rheumatoid Arthritis (RA) History of Any Multi-Drug Resistant Organisms: None Reported Past Surgical History: Cholecystectomy, Hysterectomy, Orthopedic Surgery Additional Past Surgical History / Comment(s): D & C. LEFT THUMB JOINT REPLACED, LEFT FOOT SPUR.RIGHT SHOULDER ROTATOR CUFF, RT RING FINGER TRIGGER RELEASE, COLONOSCOPY Past Anesthesia/Blood Transfusion Reactions: No Reported Reaction, Motion Sickness Smoking Status: Never smoker - Past Family History Mother Family Medical History: Cancer Additional Family Medical History / Comment(s): BREAST WITH METS Father Family Medical History: Coronary Artery Disease (CAD) Additional Family Medical History / Comment(s): HEART DISEASE Brother(s) Family Medical History: Cancer, Diabetes Mellitus, Myocardial Infarction ([place]) Additional Family Medical History / Comment(s): LUNG CANCER Son(s) Family Medical History: Asthma, Diabetes Mellitus, Hypertension Daughter(s) Family Medical History: Asthma Medications and Allergies Home Medications Medication Instructions Recorded Confirmed Type Atorvastatin [Lipitor] 40 mg PO DAILY 03/30/16 12/19/23 History Pantoprazole [Protonix] 40 mg PO QAM 03/30/16 12/19/23 History metFORMIN HCL ER [Glucophage XR] 500 mg PO BID 03/30/16 12/19/23 History amLODIPine [Norvasc] 10 mg PO DAILY 09/27/16 12/19/23 History Pioglitazone HCl 45 mg PO DAILY 06/01/19 12/19/23 History Empagliflozin [Jardiance] 25 mg PO DAILY 07/01/23 12/19/23 History Famotidine 20 mg PO HS 07/01/23 12/19/23 History Latanoprost Ophth [Xalatan 0.005%] 1 drops BOTH EYES HS 07/01/23 12/19/23 History Losartan Potassium 50 mg PO DAILY 07/01/23 12/19/23 History Tirzepatide [Mounjaro] 2.5 mg SQ SA 12/19/23 12/19/23 History Allergies Allergy/AdvReac Type Severity Reaction Status Date / Time clarithromycin [From Biaxin] AdvReac Nausea & Verified 12/19/23 08:48 Vomiting lisinopril AdvReac Cough Uncoded 12/19/23 08:48 Physical Examination Osteopathic Statement: *. No significant issues noted on an osteopathic structural exam other than those noted in the History and Physical/Consult.
[~2023-12-21 05:59] MED LIST changes: -DEXAMETHASONE SOD PHOSPHATE 4 MG/ML 1 ML VIAL IV ONE; -HYDROmorphone 0.5 MG/0.5 ML SYRINGE IVP PRN; -LACTATED RINGERS 1,000 ML IV SCH; -MIDAZOLAM 2 MG/2 ML VIAL IV PRN; -ONDANSETRON 4 MG/2 ML VIAL IVP ONE
[2023-12-21] MEDS: LACTATED RINGERS 1,000 ML IV SCH (06:43)
[2023-12-21 06:53] LABS: Glucose,Whole Blood 133 mg/dL (70-110)
[2023-12-21] MEDS: ONDANSETRON 4 MG/2 ML VIAL ONE (06:55)
[2023-12-21 07:00] VITALS: RESP 16; TEMP 98.5
[2023-12-21] MEDS: LIDOCAINE 2% INJ 20 MG/ML SQ ONE ×2 (07:22→07:31)
[2023-12-21] MEDS: BUPIVACAINE (PF) 0.25% 30 ML VIAL SQ ONE ×2 (07:22→07:31)
[2023-12-21] MEDS ORDERED: PROPOFOL 10 MG/ML 20 ML VIAL IV ONE (07:23)
[2023-12-21] MEDS ORDERED: fentaNYL (PF) 50 MCG/ML 2 ML AMP ONE (07:23)
[2023-12-21] MEDS ORDERED: MIDAZOLAM 2 MG/2 ML VIAL ONE (07:23)
--- NOTE | 2023-12-21 07:51 | P.OP ---
Date of Procedure: 12/21/23 Preoperative Diagnosis: Right carpal tunnel syndrome Postoperative Diagnosis: Right carpal tunnel syndrome Procedure(s) Performed: Right endoscopic carpal tunnel release Anesthesia: MAC Surgeon: Agustín Brian Furniture Sprayer #1: Kenny Reyes Estimated Blood Loss (ml): 0 Pathology: none sent Condition: stable Disposition: PACU Description of Procedure: This is a 73 year old female who presents today for a right endoscopic carpal tunnel release after having failed conservative treatment in the past. Risks and benefits of surgery were discussed with the patient including bleeding, damage to surrounding tissue, infection, need to convert to open procedure, need for further surgery as well as risks of anesthesia including pulmonary embolism and even and the patient wished to proceed with surgical intervention. The patients was seen in the pre-operative area by myself. Consent and H&P were completed and updated. The correct extremity was marked in the pre-operative area by myself and all other questions were answered. Operative Narrative: The patient was brought to the operating room by the department of anesthesia. They remained on the portable stretcher and a rolling hand table was brought to the side of the operative extremity. Pre-operative time out was performed indicating the correct patient, procedure and laterality. All in the room agreed. The patient was then drifted off to sleep by the department of anesthesia. MAC anesthesia was utilized and a 50:50 mixture of 1% Lidocaine and 0.5% bupivacaine was injected into the subcutaneous tissues of the palmar skin, 8ccs total. A nonsterile tourniquet was then applied to the operative extremity and the right upper extremity was then prepped and draped in normal sterile fashion. The operative extremity was the exsanguinated with an esmarch bandage and the tourniquet was inflated to 250mmHg. 15 blade scalpel was utilized to make a transverse incision on the palmar skin just ulnar to the palmaris longus tendon at the level of the distal wrist crease. Ragnell retractor was then placed radially and blunt dissection was performed to reveal the distal forearm fascia. This was lifted with fine Angel pick ups and Littler tenotomy scissors were then used to open the forearm fascia transversely and a double skin hook was then placed. Hamate finder was placed into the carpal tunnel and then sequential sized dilators were inserted followed by the synovial elevator to separate the flexor tenosynovium from the undersurface of the transverse carpal ligament and a washboard texture was felt. The MicroAire endoscopic carpal tunnel release system gun was the then inserted into the carpal tunnel hugging the deep portion of the transverse carpal ligament in line with the base of the ring finger. Transverse fibers of the ligament were directly visualized. Pressure was applied on the palm to reveal the distal extent of the transverse carpal ligament. The blade was then deployed and the distal half of the transverse carpal ligament was released. The scope was then brought distal again and remaining transverse fibers were incised with the blade. The proximal half of the transverse carpal ligament was then divided and again the scope was advanced distal and remaining transverse fibers were incised with the blade. The radial and ulnar leaflets were directly visualized and mobile consistent with complete release. Tenotomy scissors were then utilized to release the remaining distal forearm fascia under direct visualization taking care to preserve the palmar cutaneous branch of the median nerve. Skin closure was performed with interrupted 4-0 Monocryl suture followed by steri strips. Sterile dressing was applied consisting 4x4s, Webril, and an joann bandage. Tourniquet was let down and the hand immediately was well perfused. The patient was then woken by the department of anesthesia and transferred to PACU in stable condition. Kenny LANCASTER was present for the case in its entirety and assisted in major portions of the case and protection of vital neurovascular structures. Agustín Brian D.O. Orthopedic Hand/Upper Extremity Surgeon
[2023-12-21 08:47] VITALS: BP 112/74; PULSE 71
== END 2023-12-21 08:18 | disposition home or self-care (01) ==
LOC: OR 05:59
PROVIDERS: ATTEND Orthopaedic Surgery Hand Surgery
DX: G56.01 Carpal tunnel syndrome, right upper limb (principal); E11.9 Type 2 diabetes mellitus without complications; E78.5 Hyperlipidemia, unspecified; I10 Essential (primary) hypertension; K21.9 Gastro-esophageal reflux disease without esophagitis; M06.9 Rheumatoid arthritis, unspecified; Z79.84 Long term (current) use of oral hypoglycemic drugs; Z88.8 Allergy status to other drugs, medicaments and biological substances; Z90.49 Acquired absence of other specified parts of digestive tract; Z79.899 Other long term (current) drug therapy
CPT/HCPCS: 29848; J2001; J2250; J0690; J2405; J3010; J2704; J0665

== ENCOUNTER → 2024-04-30 | Outpatient (CLI) | payer MEDICARE ==
--- NOTE | 2024-05-01 09:46 | MM ---
Reason for Exam: Screening (asymptomatic). Last screening mammogram was performed 12 month(s) ago. Patient History: Menarche at age 13. First Full-Term at age 30. Left ovary removed at age 53. Right ovary removed at age 53. Hysterectomy at age 53. Postmenopausal. Mother had breast cancer, age 38. Risk Values: Mónica 5 year model risk: 3.8%. NCI Lifetime model risk: 10.2%. Prior Study Comparison: 01/16/2021 Bilateral Screening Mammogram, [facility]. 01/29/2021 Right Diagnostic Mammogram, [facility]. 04/13/2023 Bilateral MG 3D screening mammo w/cad, [facility]. Tissue Density: There are scattered areas of fibroglandular density. Findings: Analyzed By CAD. There is no suspicious group of microcalcifications or new suspicious mass in either breast. Overall Assessment: Negative, BI-RAD 1 Management: Screening Mammogram of both breasts in 1 year. . Patient should continue monthly self-breast exams. A clinical breast exam by your physician is recommended on an annual basis. This exam should not preclude additional follow-up of suspicious palpable abnormalities. Note on Mónica scores and lifetime risk: 1. A Mónica score greater than 3% is considered moderate risk. If this is the case, consider specialist referral to assess eligibility for a risk reducing agent. 2. If overall lifetime risk for the development of breast cancer is 20% or higher, the patient may qualify for future screening with alternating mammogram and breast MRI. [facility], , 05/01/2024 9:43 AM. Electronically signed and approved by: Arturo Brewer M.D. Radiologis
== END | disposition home or self-care (01) ==
LOC: RADMAMWWP 07:30
PROVIDERS: ATTEND Family Medicine
DX: Z12.31 Encounter for screening mammogram for malignant neoplasm of breast
CPT/HCPCS: 77063; 77067

== ENCOUNTER → 2024-12-12 | Outpatient (CLI) | payer MEDICARE ==
[2024-12-12 11:09] VITALS: BP 105/56; PULSE 52; RESP 16; TEMP 98
--- NOTE | 2024-12-12 11:40 | P.SLEEP ---
History of Present Illness DATE: 12/12/2024 CONSULTATION/NEW PATIENT EVALUATION HISTORY OF PRESENT ILLNESS/SLEEP-WAKE EVALUATION: 74-year-old lady had been e valuated in the sleep center for obstructive sleep apnea hypopnea syndrome. Last time I saw the patient in our sleep center in June 2020. Patient stopped using CPAP equipment several months ago, because mask and tube are old. I checked CPAP unit. Last time when patient used CPAP equipment pressure was 5 to 12 cm of water, average 10.9 cm of water, leak was 28 L/min, usage was 9.2 hours, apnea-hypopnea index was 0.4 which is normal SLEEP SCHEDULE: Usually sleep schedule from 10 PM to 6 AM. FALLING ASLEEP: No problems with falling asleep. DURING SLEEP: Patient snores without CPAP and wakes up from sleep 3 times with 1 episode of nocturia. No history of hypnogogical hallucinations, sleep paralysis, or cataplexy. DURING THE DAY/WAKE STATE: In the morning patient wake up tired, falling asleep during the day. Carroll sleepiness scale is 7. Patient takes nap early afternoon. PAST MEDICAL HISTORY: Hypertension, diabetes mellitus, acid reflux, hyperlipidemia. PAST SURGICAL HISTORY: Total hysterectomy, cholecystectomy, right shoulder surgery. MEDICATIONS: Please see below. SOCIAL HISTORY: Please see below. FAMILY HISTORY: See below. REVIEW OF SYSTEMS: Snoring, awakenings from sleep. No fevers. No double vision. No recent chest pain. No shortness of breath. No abdominal pain. No bleeding episodes. No blood in urine. No seizure episodes. PHYSICAL EXAMINATION: GENERAL: A pleasant patient without any distress. VITAL SIGNS: Please see below, weight 127.4 pounds, BMI 27.2. HEENT: PERRLA, EOMI. Evaluation of oropharynx showed tongue protrudes midline, low position of soft palate Mallampati 4. NECK: Supple. No JVD. Thyroid is not palpable. 13.5 inches in circumference. LUNGS: Clear to percussion and to auscultation. Good air exchange. No wheezing or rhonchi. HEART: S1, S2 regular. No murmurs, gallops or rubs. ABDOMEN: Soft and nontender. Bowel sounds are present. No organomegaly appreciated. EXTREMITIES: No clubbing or cyanosis. GRANT SPECIALIST: Awake, alert, and oriented x3. Cranial nerves 2 to 7 intact. There is no fasciculation or atrophy noted. No focal deficits observed. ASSESSMENT: 1. Obstructive sleep apnea hypopnea syndrome for many years. Awakenings from sleep, snoring. Extremely low position of soft palate Mallampati 4. Obstructive sleep apnea hypopnea syndrome. 2. Hypertension. 3. Diabetes mellitus, hemoglobin A1c according to patient around 6.6. 4. Acid reflux. 5 hyperlipidemia. 6 . Status post hysterectomy. 7. Status post cholecystectomy. 8. Status post right shoulder surgery. PLAN: 1. Patient will continue to use CPAP equipment every night for the whole night. Prescription for all necessary CPAP supplies was written. 2. Sleep hygiene with regular sleep time for at least 7.5-8 hours.. 3. Preferable position during sleep on the side. 4. No driving if patient feels any sleepiness. Patient is aware of civil and criminal liability for unsafe driving. 5. Watching weight. Thank you very much for referring this patient for consultation. Sincerely, Janak Narvaez MD, PhD, FAASM. Diplomat of [place] [employer], Sleep Medicine Board by [place] [employer] [place] [employer] Fittings Finisher of [facility] Past Medical History Past Medical History: Diabetes Mellitus, GERD/Reflux, Hyperlipidemia, Hypertension, Rheumatoid Arthritis (RA) History of Any Multi-Drug Resistant Organisms: None Reported Past Surgical History: Cholecystectomy, Hysterectomy, Orthopedic Surgery Additional Past Surgical History / Comment(s): D & C. LEFT THUMB JOINT REPLACED, LEFT FOOT SPUR.RIGHT SHOULDER ROTATOR CUFF, RT RING FINGER TRIGGER RELEASE, COLONOSCOPY, r hand - carpal tunnel and replacement of thumb joint, skin cancer - plastic surgery on nose after. Past Anesthesia/Blood Transfusion Reactions: No Reported Reaction, Motion Sickness Past Psychological History: No Psychological Hx Reported Smoking Status: Never smoker Past Alcohol Use History: Occasional Past Drug Use History: None Reported Additional Drug Use History / Comment(s): cream for ankle/HANDS with hemp oil - Past Family History Mother Family Medical History: Cancer Additional Family Medical History / Comment(s): BREAST WITH METS Father Family Medical History: Coronary Artery Disease (CAD) Additional Family Medical History / Comment(s): HEART DISEASE Brother(s) Family Medical History: Cancer, Diabetes Mellitus, Myocardial Infarction (PA) Additional Family Medical History / Comment(s): LUNG CANCER Son(s) Family Medical History: Asthma, Diabetes Mellitus, Hypertension Daughter(s) Family Medical History: Asthma Medications and Allergies Home Medications Medication Instructions Recorded Confirmed Type Atorvastatin [Lipitor] 40 mg PO DAILY 03/30/16 12/12/24 History Pantoprazole [Protonix] 40 mg PO QAM 03/30/16 12/12/24 History metFORMIN HCL ER [Glucophage XR] 500 mg PO BID 03/30/16 12/12/24 History amLODIPine [Norvasc] 10 mg PO DAILY 09/27/16 12/12/24 History Pioglitazone HCl 45 mg PO DAILY 06/01/19 12/12/24 History Empagliflozin [Jardiance] 25 mg PO DAILY 07/01/23 12/12/24 History Famotidine 20 mg PO HS 07/01/23 12/12/24 History Latanoprost Ophth [Xalatan 0.005%] 1 drops BOTH EYES HS 07/01/23 12/12/24 History Losartan Potassium 50 mg PO DAILY 07/01/23 12/12/24 History Tirzepatide [Mounjaro] 2.5 mg SQ SA 12/19/23 12/12/24 History Allergies Allergy/AdvReac Type Severity Reaction Status Date / Time clarithromycin [From Biaxin] AdvReac Nausea & Verified 12/21/23 06:37 Vomiting lisinopril AdvReac Cough Uncoded 12/21/23 06:37 Physical Exam Vitals: Vital Signs Temp Pulse Resp BP Pulse Ox 12/12/24 11:05 98.0 F 52 L 16 105/56 100 Intake and Output 12/11/24 12/12/24 12/12/24 22:59 06:59 14:59 Other: Weight 57.72 kg Sleep Note - Sleep Data ESS Total: 7 - Sleep Note Sleep Note: Temperature: 98.0 F Pulse Rate: 52 Respiratory Rate: 16 Blood Pressure: 105/56 SpO2: 100 Height: 4 ft 9.2 in Weight: 57.72 kg BMI: Neck Circumference: 13.5
== END ==
LOC: 3 N SLEEP 10:35
PROVIDERS: ATTEND Internal Medicine
DX: G47.33 Obstructive sleep apnea (adult) (pediatric) (principal); I10 Essential (primary) hypertension; E11.9 Type 2 diabetes mellitus without complications; K21.9 Gastro-esophageal reflux disease without esophagitis; Z90.49 Acquired absence of other specified parts of digestive tract; Z98.890 Other specified postprocedural states; Z88.8 Allergy status to other drugs, medicaments and biological substances; Z88.1 Allergy status to other antibiotic agents; Z90.710 Acquired absence of both cervix and uterus
CPT/HCPCS: 99211